=== PATIENT | female | born 1960 | race Native Hawaiian/Other Pacific Islander ===

== ENCOUNTER 2017-05-12 21:46 | Emergency (ER) | payer BC ==
--- NOTE | 2017-05-13 03:36 | Emergency Department Report ---
Minor Respiratory - HPI Chief Complaint: Upper Respiratory Infection Stated Complaint: SWOLLEN LYMPHNODES Time Seen by Provider: 05/13/17 02:11 Duration: 2 Days Pain Location: Throat, Other (swelling to right lymph nodes) Severity: moderate Minor Respiratory: Yes Rhinorrhea (nasal congestion), Yes Sore Throat, Yes Able to Tolerate Fluids, Yes Cough, No Ear Pain, No Sick Contacts, No Hemoptysis, No Chest Pain, No Shortness of Breath, No Fever Other History: She reports that she's been having in cold symptoms with nasal congestion and sinus problems over a month ago she started having sore throat and swollen lymph nodes on the right side of her neck for the past couple days. Denies any nausea or vomiting. Denies any shortness of breath or chest pain. Denies any neck pain or stiffness. Reports nasal congestion and runny nose. [id number] cough and cold is not helping. ED Review of Systems ROS: Stated complaint: SWOLLEN LYMPHNODES Other details as noted in HPI Comment: All other systems reviewed and negative Constitutional: no symptoms reported ENT: throat pain, congestion. denies: ear pain, dental pain Respiratory: cough. denies: orthopnea, shortness of breath, SOB with exertion, SOB at rest, stridor, wheezing Cardiovascular: denies: chest pain, palpitations, dyspnea on exertion, orthopnea , edema, syncope, paroxysmal nocturnal dyspnea Gastrointestinal: denies: nausea, vomiting Musculoskeletal: denies: back pain, joint swelling, arthralgia, myalgia Skin: denies: rash Neurological: denies: headache Hematological/Lymphatic: swollen glands ED Past Medical Hx - Past Medical History Previous Medical History?: Yes Hx Hypertension: Yes Additional medical history: anemia - Surgical History Past Surgical History?: No - Family History Family history: hypertension - Social History Smoking Status: Never Smoker Substance Use Type: None - Medications Home Medications: Home Medications Medication Instructions Recorded Confirmed Last Taken Type Lisinopril [Zestril] 40 mg PO DAILY 12/28/13 12/28/13 12/28/13 History Butalb/Acetamin/Caff 50-325-40 2 tab PO Q8HR PRN #14 tablet 02/28/16 Unknown Rx [Fioricet] Meclizine [Antivert] 25 mg PO TID PRN #20 tablet 02/28/16 Unknown Rx Aspirin EC [Aspirin Enteric Coated 81 mg PO QDAY #30 tablet. 05/25/16 Unknown Rx TAB] AtorvaSTATin [Lipitor] 20 mg PO QDAY #30 tablet 05/25/16 Unknown Rx Hydrochlorothiazide [HCTZ] 50 mg PO QDAY #30 tablet 05/25/16 Unknown Rx amLODIPine [Norvasc] 5 mg PO DAILY #30 tab 05/25/16 Unknown Rx Azithromycin [Zithromax] 250 mg PO QDAY 5 Days #1 pack 05/13/17 Unknown Rx Cetirizine HCl [ZyrTEC] 10 mg PO QAM 14 Days #14 capsule 05/13/17 Unknown Rx Fluticasone [Flonase] 1 spray NS QDAY 14 Days #1 bottle 05/13/17 Unknown Rx Ibuprofen [Motrin] 600 mg PO Q8H PRN 3 Days #9 tablet 05/13/17 Unknown Rx Minor Respiratory Exam - Exam General: Vital signs noted. No distress. Alert and acting appropriately. This is a 56-year-old female well-nourished well-developed in no acute distress HEENT: Yes Moist Mucous Membranes (tongue normal), Yes Rhinorrhea (positive nasal congestion), No Pharyngeal Erythema (uvula is midline, no trismus), No Pharyngeal Exudates (no peritonsillar abscess), No Conjuctival Injection, No Frontal Tenderness, No Maxillary Tenderness Ear: Neither TM Bulge (Bunny TM congested without erythema), Neither TM Erythema, Neither EAC Pain, Neither EAC Discharge Neck: Yes Supple (Full ROM. No C-spine tenderness), No Adenopathy Lungs: Yes Good Air Exchange (CTAB), Yes Other Abnormal Lung Sounds, No Wheezes , No Ronchi, No Stridor, No Cough, No Labored Respirations, No Retractions, No Use of Accessory Muscles Heart: Yes Regular (S1S2), No Murmur Abdomen: Yes Normal Bowel Sounds, No Tenderness, No Peritoneal Signs Skin: No Rash, No Edema Neurologic: Alert and oriented 3 , GCS of 15, speech is clear and fluid. No facial drooping. No motor or sensory deficit Musculoskeletal: Unremarkable. Clubbing, cyanosis or edema. No neurovascular compromise to all extremities ED Course Vital Signs 05/12/17 21:56 Temperature 98.5 F Pulse Rate 76 Respiratory 18 Rate Blood Pressure 128/79 O2 Sat by Pulse 100 Oximetry - Reevaluation(s) Reevaluation #1: 05/13/17 03:40 stable throughout ED course. ED Medical Decision Making - Medical Decision Making ED course: He reports that she's been having sinus and cold and cough symptoms for over a month but now with sore throat with right neck lymph node swollen. Physical findings for sinusitis that has been ongoing for over a month. Patient has no abnormality to oral mucosa. Her lung sounds are clear and she's been having any acute distress. I discussed with her that she has a sinus infection and will be treated with antibiotic, Zyrtec and Flonase and Motrin from ED in stable condition and she'll need to follow up with her primary care physician in 2-3 days. Patient discharged home Critical care attestation.: If time is entered above; I have spent that time in minutes in the direct care of this critically ill patient, excluding procedure time. ED Disposition Clinical Impression: Sinusitis nasal Qualifiers: Sinusitis location: unspecified location Chronicity: unspecified Qualified Code (s): J32.9 - Chronic sinusitis, unspecified Pharyngitis Qualifiers: Pharyngitis/tonsillitis etiology: unspecified etiology Qualified Code(s): J02.9 - Acute pharyngitis, unspecified Disposition: DC- TO HOME OR SELFCARE Is pt being admited?: No Does the pt Need Aspirin: No Condition: Stable Instructions: Sinusitis (ED), Pharyngitis (ED) Additional Instructions: Please increase her fluid intake Flush nostrils with saline nasal spray take antibiotic as prescribed F/U with primary care physician in 2-3 days Prescriptions: Azithromycin [Zithromax] 250 mg PO QDAY 5 Days #1 pack Cetirizine HCl [ZyrTEC] 10 mg PO QAM 14 Days #14 capsule Fluticasone [Flonase] 1 spray NS QDAY 14 Days #1 bottle Ibuprofen [Motrin] 600 mg PO Q8H PRN 3 Days #9 tablet PRN Reason: Pain Referrals: PRIMARY CARE,MD [Primary Care Provider] - 2-3 Days Forms: Work/School Release Form(ED)
[2017-05-13 04:08] VITALS: BP 149/89
== END 2017-05-13 04:07 | disposition home or self-care (01) ==
LOC: ED 21:46
DX: J32.9 Chronic sinusitis, unspecified (principal); J02.9 Acute pharyngitis, unspecified; I10 Essential (primary) hypertension; D64.9 Anemia, unspecified; Z79.82 Long term (current) use of aspirin; Z88.0 Allergy status to penicillin
CPT/HCPCS: 99282

== ENCOUNTER 2018-07-23 04:22 | Emergency (ER) | payer BC ==
[2018-07-23 04:57] LABS: Hematocrit 38.5 % (30.3-42.9); Hemoglobin 12.8 gm/dl (10.1-14.3); Mean Corpuscular HGB Conc 33 % (30-34); Mean Corpuscular Volume 76 fl (79-97); Platelet Count 184 K/mm3 (140-440); Red Blood Count 5.08 M/mm3 (3.65-5.03); Red Cell Distribution Width 14.6 % (13.2-15.2)
[2018-07-23 05:11] LABS: BUN/Creatinine Ratio 19; Blood Urea Nitrogen 13 mg/dL (7-17); Hemolysis Index 10
[2018-07-23 05:38] LABS: RBC Morphology Normal; Total Cells Counted 100
--- NOTE | 2018-07-23 07:00 | Emergency Department Report ---
ED General Adult HPI - General Chief complaint: Dizziness Stated complaint: DIZZINESS,LOW BP Time Seen by Provider: 07/23/18 06:08 Source: patient Mode of arrival: Wheelchair Limitations: No Limitations - History of Present Illness Initial comments: This is a 57 year old female who has had recurrent episodes of hypotension. She has a history of hypertension and is treated with myocarditis/HCTZ. She states that she felt weak and dizzy and that her blood pressure was checked during her shift last night. It was found to be 70/40. She drank a glass of water which usually helps this situation. However her blood pressure only did rise to 80 systolic. She came to the emergency department. She was found to have a blood pressure 161/90. She was essentially asymptomatic at time of my encounter. For some reason a CT of her head was ordered. She does not complain to me of headache nor head injury nor a syncopal episode. I think this is a foregoable exposure to radiation personally. In any case patient has refused this test ordered by my predecessor. She has no complaint referral both to the neurological system at the time of my encounter. -: Gradual Associated Symptoms: weakness Treatments Prior to Arrival: none - Related Data Home Medications Medication Instructions Recorded Confirmed Last Taken Lisinopril [Zestril] 40 mg PO DAILY 12/28/13 12/28/13 12/28/13 Previous Rx's Medication Instructions Recorded Last Taken Type Butalb/Acetamin/Caff 50-325-40 2 tab PO Q8HR PRN #14 tablet 02/28/16 Unknown Rx [Fioricet] Meclizine [Antivert] 25 mg PO TID PRN #20 tablet 02/28/16 Unknown Rx Aspirin EC [Aspirin Enteric Coated 81 mg PO QDAY #30 tablet. 05/25/16 Unknown Rx TAB] AtorvaSTATin [Lipitor] 20 mg PO QDAY #30 tablet 05/25/16 Unknown Rx amLODIPine [Norvasc] 5 mg PO DAILY #30 tab 05/25/16 Unknown Rx hydroCHLOROthiazide [HCTZ] 50 mg PO QDAY #30 tablet 05/25/16 Unknown Rx Azithromycin [Zithromax] 250 mg PO QDAY 5 Days #1 pack 05/13/17 Unknown Rx Cetirizine HCl [ZyrTEC] 10 mg PO QAM 14 Days #14 capsule 05/13/17 Unknown Rx Fluticasone [Flonase] 1 spray NS QDAY 14 Days #1 bottle 05/13/17 Unknown Rx Ibuprofen [Motrin] 600 mg PO Q8H PRN 3 Days #9 tablet 05/13/17 Unknown Rx Doxycycline Hyclate [Doxycycline 100 mg PO Q12HR #14 tab 05/15/18 Unknown Rx Hyclate TAB] Fluticasone [Flonase] 1 spray NS QDAY #1 bottle 05/15/18 Unknown Rx Telmisartan/Hctz (Nf) [Micardis 1 each PO QDAY #30 tablet 07/23/18 Unknown Rx Hct (Nf) 80-12.5 mg] Allergies Allergy/AdvReac Type Severity Reaction Status Date / Time Penicillins Allergy Swelling Verified 02/28/13 23:33 ED Review of Systems ROS: Stated complaint: DIZZINESS,LOW BP Other details as noted in HPI Constitutional: denies: chills, fever Eyes: denies: eye pain, eye discharge, vision change ENT: denies: ear pain, throat pain Respiratory: denies: cough, shortness of breath, wheezing Cardiovascular: denies: chest pain, palpitations Endocrine: no symptoms reported Gastrointestinal: denies: abdominal pain, nausea, diarrhea Genitourinary: denies: urgency, dysuria, discharge Musculoskeletal: denies: back pain, joint swelling, arthralgia Skin: denies: rash, lesions Neurological: denies: headache, weakness, paresthesias Psychiatric: denies: anxiety, depression Hematological/Lymphatic: denies: easy bleeding, easy bruising ED Past Medical Hx - Past Medical History Previous Medical History?: Yes Hx Hypertension: Yes Additional medical history: anemia - Surgical History Past Surgical History?: No - Social History Smoking Status: Never Smoker Substance Use Type: Prescribed - Medications Home Medications: Home Medications Medication Instructions Recorded Confirmed Last Taken Type Lisinopril [Zestril] 40 mg PO DAILY 12/28/13 12/28/13 12/28/13 History Butalb/Acetamin/Caff 50-325-40 2 tab PO Q8HR PRN #14 tablet 02/28/16 Unknown Rx [Fioricet] Meclizine [Antivert] 25 mg PO TID PRN #20 tablet 02/28/16 Unknown Rx Aspirin EC [Aspirin Enteric Coated 81 mg PO QDAY #30 tablet. 05/25/16 Unknown Rx TAB] AtorvaSTATin [Lipitor] 20 mg PO QDAY #30 tablet 05/25/16 Unknown Rx amLODIPine [Norvasc] 5 mg PO DAILY #30 tab 05/25/16 Unknown Rx hydroCHLOROthiazide [HCTZ] 50 mg PO QDAY #30 tablet 05/25/16 Unknown Rx Azithromycin [Zithromax] 250 mg PO QDAY 5 Days #1 pack 05/13/17 Unknown Rx Cetirizine HCl [ZyrTEC] 10 mg PO QAM 14 Days #14 capsule 05/13/17 Unknown Rx Fluticasone [Flonase] 1 spray NS QDAY 14 Days #1 bottle 05/13/17 Unknown Rx Ibuprofen [Motrin] 600 mg PO Q8H PRN 3 Days #9 tablet 05/13/17 Unknown Rx Doxycycline Hyclate [Doxycycline 100 mg PO Q12HR #14 tab 05/15/18 Unknown Rx Hyclate TAB] Fluticasone [Flonase] 1 spray NS QDAY #1 bottle 05/15/18 Unknown Rx Telmisartan/Hctz (Nf) [Micardis 1 each PO QDAY #30 tablet 07/23/18 Unknown Rx Hct (Nf) 80-12.5 mg] ED Physical Exam - General Limitations: No Limitations General appearance: alert, in no apparent distress - Head Head exam: Present: atraumatic, normocephalic - Eye Eye exam: Present: normal appearance - ENT ENT exam: Present: mucous membranes moist - Neck Neck exam: Present: normal inspection - Respiratory Respiratory exam: Present: normal lung sounds bilaterally. Absent: respiratory distress - Cardiovascular Cardiovascular Exam: Present: regular rate, normal rhythm. Absent: systolic murmur, diastolic murmur, rubs, gallop - GI/Abdominal GI/Abdominal exam: Present: soft, normal bowel sounds. Absent: distended, tend erness, guarding, rebound, rigid - Extremities Exam Extremities exam: Present: normal inspection - Back Exam Back exam: Present: normal inspection - Neurological Exam Neurological exam: Present: alert, oriented X3, CN II-XII intact, normal gait. Absent: motor sensory deficit - Psychiatric Psychiatric exam: Present: normal affect, normal mood - Skin Skin exam: Present: warm, dry, intact, normal color. Absent: rash ED Course Vital Signs 07/23/18 07/23/18 07/23/18 04:23 04:30 04:33 Temperature 98.2 F Blood Pressure 157/95 149/93 O2 Sat by Pulse 100 Oximetry 07/23/18 07/23/18 07/23/18 05:00 05:15 05:30 Temperature Blood Pressure 131/88 130/80 156/94 O2 Sat by Pulse Oximetry 07/23/18 05:45 Temperature Blood Pressure 144/90 O2 Sat by Pulse Oximetry ED Medical Decision Making - Lab Data Result diagrams: 07/23/18 04:45 07/23/18 04:45 Laboratory Results - last 24 hr 07/23/18 07/23/18 07/23/18 04:45 04:45 07:01 WBC 5.2 RBC 5.08 H Hgb 12.8 Hct 38.5 MCV 76 L MCH 25 L MCHC 33 RDW 14.6 Plt Count 184 Lymph % (Auto) Roll Contour Grinder Add Manual Diff Complete Total Counted 100 Seg Neutrophils % Roll Contour Grinder Seg Neuts % (Manual) 36.0 L Band Neutrophils % 0 Lymphocytes % (Manual) 52.0 H Reactive Lymphs % (Man) 0 Monocytes % (Manual) 2.0 Eosinophils % (Manual) 9.0 H Basophils % (Manual) 1.0 Metamyelocytes % 0 Myelocytes % 0 Promyelocytes % 0 Blast Cells % 0 Nucleated RBC % Not Reportable Seg Neutrophils # Man 1.9 Band Neutrophils # 0.0 Lymphocytes # (Manual) 2.7 Abs React Lymphs (Man) 0.0 Monocytes # (Manual) 0.1 Eosinophils # (Manual) 0.5 H Basophils # (Manual) 0.1 Metamyelocytes # 0.0 Myelocytes # 0.0 Promyelocytes # 0.0 Blast Cells # 0.0 WBC Morphology Not Reportable Hypersegmented Neuts Not Reportable Hyposegmented Neuts Not Reportable Hypogranular Neuts Not Reportable Smudge Cells Not Reportable Toxic Granulation Not Reportable Toxic Vacuolation Not Reportable Dohle Bodies Not Reportable Pelger-Huet Anomaly Not Reportable Juni Rods Not Reportable Platelet Estimate Appears normal Clumped Platelets Not Reportable Plt Clumps, EDTA Not Reportable Large Platelets Not Reportable Giant Platelets Not Reportable Platelet Satelliting Not Reportable Plt Morphology Comment Not Reportable RBC Morphology Normal Dimorphic RBCs Not Reportable Polychromasia Not Reportable Hypochromasia Not Reportable Poikilocytosis Not Reportable Anisocytosis Not Reportable Microcytosis Not Reportable Macrocytosis Not Reportable Spherocytes Not Reportable Pappenheimer Bodies Not Reportable Sickle Cells Not Reportable Target Cells Not Reportable Tear Drop Cells Not Reportable Ovalocytes Not Reportable Helmet Cells Not Reportable Leon-[place] Bodies Not Reportable Garner Rings Not Reportable Teresa Cells Not Reportable Bite Cells Not Reportable Crenated Cell Not Reportable Elliptocytes Not Reportable Acanthocytes (Spur) Not Reportable Rouleaux Not Reportable Hemoglobin C Crystals Not Reportable Schistocytes Not Reportable Malaria parasites Not Reportable Chava Bodies Not Reportable Hem Pathologist Commnt No Sodium 138 Potassium 3.2 L Chloride 97.3 L Carbon Dioxide 28 Anion Gap 16 BUN 13 Creatinine 0.7 Estimated GFR > 60 BUN/Creatinine Ratio 19 Glucose 108 H Calcium 9.0 Urine Bilirubin Neg Urine RBC (Auto) 1.0 U Epithel Cells (Auto) 5.0 Laboratory Results - last 24 hr 07/23/18 07/23/18 07/23/18 04:45 04:45 07:01 WBC 5.2 RBC 5.08 H Hgb 12.8 Hct 38.5 MCV 76 L MCH 25 L MCHC 33 RDW 14.6 Plt Count 184 Lymph % (Auto) Roll Contour Grinder Add Manual Diff Complete Total Counted 100 Seg Neutrophils % Roll Contour Grinder Seg Neuts % (Manual) 36.0 L Band Neutrophils % 0 Lymphocytes % (Manual) 52.0 H Reactive Lymphs % (Man) 0 Monocytes % (Manual) 2.0 Eosinophils % (Manual) 9.0 H Basophils % (Manual) 1.0 Metamyelocytes % 0 Myelocytes % 0 Promyelocytes % 0 Blast Cells % 0 Nucleated RBC % Not Reportable Seg Neutrophils # Man 1.9 Band Neutrophils # 0.0 Lymphocytes # (Manual) 2.7 Abs React Lymphs (Man) 0.0 Monocytes # (Manual) 0.1 Eosinophils # (Manual) 0.5 H Basophils # (Manual) 0.1 Metamyelocytes # 0.0 Myelocytes # 0.0 Promyelocytes # 0.0 Blast Cells # 0.0 WBC Morphology Not Reportable Hypersegmented Neuts Not Reportable Hyposegmented Neuts Not Reportable Hypogranular Neuts Not Reportable Smudge Cells Not Reportable Toxic Granulation Not Reportable Toxic Vacuolation Not Reportable Dohle Bodies Not Reportable Pelger-Huet Anomaly Not Reportable Juni Rods Not Reportable Platelet Estimate Appears normal Clumped Platelets Not Reportable Plt Clumps, EDTA Not Reportable Large Platelets Not Reportable Giant Platelets Not Reportable Platelet Satelliting Not Reportable Plt Morphology Comment Not Reportable RBC Morphology Normal Dimorphic RBCs Not Reportable Polychromasia Not Reportable Hypochromasia Not Reportable Poikilocytosis Not Reportable Anisocytosis Not Reportable Microcytosis Not Reportable Macrocytosis Not Reportable Spherocytes Not Reportable Pappenheimer Bodies Not Reportable Sickle Cells Not Reportable Target Cells Not Reportable Tear Drop Cells Not Reportable Ovalocytes Not Reportable Helmet Cells Not Reportable Leon-[place] Bodies Not Reportable Garner Rings Not Reportable [employer] Cells Not Reportable Bite Cells Not Reportable Crenated Cell Not Reportable Elliptocytes Not Reportable Acanthocytes (Spur) Not Reportable Rouleaux Not Reportable Hemoglobin C Crystals Not Reportable Schistocytes Not Reportable Malaria parasites Not Reportable Chava Bodies Not Reportable Hem Pathologist Commnt No Sodium 138 Potassium 3.2 L Chloride 97.3 L Carbon Dioxide 28 Anion Gap 16 BUN 13 Creatinine 0.7 Estimated GFR > 60 BUN/Creatinine Ratio 19 Glucose 108 H Calcium 9.0 Urine Bilirubin Neg Urine RBC (Auto) 1.0 U Epithel Cells (Auto) 5.0 Laboratory Results - last 24 hr 07/23/18 07/23/18 07/23/18 04:45 04:45 07:01 WBC 5.2 RBC 5.08 H Hgb 12.8 Hct 38.5 MCV 76 L MCH 25 L MCHC 33 RDW 14.6 Plt Count 184 Lymph % (Auto) Roll Contour Grinder Add Manual Diff Complete Total Counted 100 Seg Neutrophils % Roll Contour Grinder Seg Neuts % (Manual) 36.0 L Band Neutrophils % 0 Lymphocytes % (Manual) 52.0 H Reactive Lymphs % (Man) 0 Monocytes % (Manual) 2.0 Eosinophils % (Manual) 9.0 H Basophils % (Manual) 1.0 Metamyelocytes % 0 Myelocytes % 0 Promyelocytes % 0 Blast Cells % 0 Nucleated RBC % Not Reportable Seg Neutrophils # Man 1.9 Band Neutrophils # 0.0 Lymphocytes # (Manual) 2.7 Abs React Lymphs (Man) 0.0 Monocytes # (Manual) 0.1 Eosinophils # (Manual) 0.5 H Basophils # (Manual) 0.1 Metamyelocytes # 0.0 Myelocytes # 0.0 Promyelocytes # 0.0 Blast Cells # 0.0 WBC Morphology Not Reportable Hypersegmented Neuts Not Reportable Hyposegmented Neuts Not Reportable Hypogranular Neuts Not Reportable Smudge Cells Not Reportable Toxic Granulation Not Reportable Toxic Vacuolation Not Reportable Dohle Bodies Not Reportable Pelger-Huet Anomaly Not Reportable Juni Rods Not Reportable Platelet Estimate Appears normal Clumped Platelets Not Reportable Plt Clumps, EDTA Not Reportable Large Platelets Not Reportable Giant Platelets Not Reportable Platelet Satelliting Not Reportable Plt Morphology Comment Not Reportable RBC Morphology Normal Dimorphic RBCs Not Reportable Polychromasia Not Reportable Hypochromasia Not Reportable Poikilocytosis Not Reportable Anisocytosis Not Reportable Microcytosis Not Reportable Macrocytosis Not Reportable Spherocytes Not Reportable Pappenheimer Bodies Not Reportable Sickle Cells Not Reportable Target Cells Not Reportable Tear Drop Cells Not Reportable Ovalocytes Not Reportable Helmet Cells Not Reportable Leon-[place] Bodies Not Reportable Garner Rings Not Reportable Teresa Cells Not Reportable Bite Cells Not Reportable Crenated Cell Not Reportable Elliptocytes Not Reportable Acanthocytes (Spur) Not Reportable Rouleaux Not Reportable Hemoglobin C Crystals Not Reportable Schistocytes Not Reportable Malaria parasites Not Reportable Chava Bodies Not Reportable Hem Pathologist Commnt No Sodium 138 Potassium 3.2 L Chloride 97.3 L Carbon Dioxide 28 Anion Gap 16 BUN 13 Creatinine 0.7 Estimated GFR > 60 BUN/Creatinine Ratio 19 Glucose 108 H Calcium 9.0 Urine Bilirubin Neg Urine RBC (Auto) 1.0 U Epithel Cells (Auto) 5.0 Laboratory Results - last 24 hr 07/23/18 07/23/18 07/23/18 04:45 04:45 07:01 WBC 5.2 RBC 5.08 H Hgb 12.8 Hct 38.5 MCV 76 L MCH 25 L MCHC 33 RDW 14.6 Plt Count 184 Lymph % (Auto) Roll Contour Grinder Add Manual Diff Complete Total Counted 100 Seg Neutrophils % Roll Contour Grinder Seg Neuts % (Manual) 36.0 L Band Neutrophils % 0 Lymphocytes % (Manual) 52.0 H Reactive Lymphs % (Man) 0 Monocytes % (Manual) 2.0 Eosinophils % (Manual) 9.0 H Basophils % (Manual) 1.0 Metamyelocytes % 0 Myelocytes % 0 Promyelocytes % 0 Blast Cells % 0 Nucleated RBC % Not Reportable Seg Neutrophils # Man 1.9 Band Neutrophils # 0.0 Lymphocytes # (Manual) 2.7 Abs React Lymphs (Man) 0.0 Monocytes # (Manual) 0.1 Eosinophils # (Manual) 0.5 H Basophils # (Manual) 0.1 Metamyelocytes # 0.0 Myelocytes # 0.0 Promyelocytes # 0.0 Blast Cells # 0.0 WBC Morphology Not Reportable Hypersegmented Neuts Not Reportable Hyposegmented Neuts Not Reportable Hypogranular Neuts Not Reportable Smudge Cells Not Reportable Toxic Granulation Not Reportable Toxic Vacuolation Not Reportable Dohle Bodies Not Reportable Pelger-Huet Anomaly Not Reportable Juni Rods Not Reportable Platelet Estimate Appears normal Clumped Platelets Not Reportable Plt Clumps, EDTA Not Reportable Large Platelets Not Reportable Giant Platelets Not Reportable Platelet Satelliting Not Reportable Plt Morphology Comment Not Reportable RBC Morphology Normal Dimorphic RBCs Not Reportable Polychromasia Not Reportable Hypochromasia Not Reportable Poikilocytosis Not Reportable Anisocytosis Not Reportable Microcytosis Not Reportable Macrocytosis Not Reportable Spherocytes Not Reportable Pappenheimer Bodies Not Reportable Sickle Cells Not Reportable Target Cells Not Reportable Tear Drop Cells Not Reportable Ovalocytes Not Reportable Helmet Cells Not Reportable [place] Bodies Not Reportable Garner Rings Not Reportable [employer] Cells Not Reportable Bite Cells Not Reportable Crenated Cell Not Reportable Elliptocytes Not Reportable Acanthocytes (Spur) Not Reportable Rouleaux Not Reportable Hemoglobin C Crystals Not Reportable Schistocytes Not Reportable Malaria parasites Not Reportable Chava Bodies Not Reportable Hem Pathologist Commnt No Sodium 138 Potassium 3.2 L Chloride 97.3 L Carbon Dioxide 28 Anion Gap 16 BUN 13 Creatinine 0.7 Estimated GFR > 60 BUN/Creatinine Ratio 19 Glucose 108 H Calcium 9.0 Urine Color Yellow Urine Turbidity Clear Urine pH 6.0 Ur Specific [place] 1.018 Urine Protein <15 mg/dl Urine Glucose (UA) Neg Urine Ketones Neg Urine Blood Neg Urine Nitrite Neg Urine Bilirubin Neg Urine Urobilinogen < 2.0 Ur Leukocyte Esterase Tr Urine WBC (Auto) 5.0 Urine RBC (Auto) 1.0 U Epithel Cells (Auto) 5.0 Urine Mucus Few - EKG Data -: EKG Interpreted by Me EKG shows normal: sinus rhythm, axis, intervals, QRS complexes, ST-T waves Rate: normal - EKG Data Interpretation: other (normal sinus rhythm no evidence of acute ischemia. There is a QS and the 2 of uncertain significance) Critical care attestation.: If time is entered above; I have spent that time in minutes in the direct care of this critically ill patient, excluding procedure time. ED Disposition Clinical Impression: Essential hypertension, Hypotensive episode, Hypokalemia Disposition: TO HOME OR SELFCARE Is pt being admited?: No Does the pt Need Aspirin: No Condition: Stable Instructions: Hypertension (ED), Hypokalemia (ED), Hypotension (ED) Additional Instructions: Was reduced her dose of myocarditis HCTZ. Follow up with your primary care doctor and checked your blood pressure frequently. Be careful to avoid abrupt change of position/get up slowly. Stay well hydrated. Return any acute change or problems Prescriptions: Telmisartan/Hctz (Nf) [Micardis Hct (Nf) 80-12.5 mg] 1 each PO QDAY #30 tablet Referrals: WILLI LICONA MD [Primary Care Provider] - 3-5 Days Time of Disposition: 07:39
[2018-07-23 07:30] LABS: Bilirubin,Urine NEG (Negative); Blood,Urine NEG (Negative); Color,Urine Yellow (Yellow); Mucus,Urine FEW /HPF; Protein,Urine <15 mg/dL mg/dL (Negative); Urobilinogen,Urine < 2.0 mg/dL (<2.0)
[2018-07-23] MEDS ORDERED: K-DUR PO ONE (07:35)
[2018-07-23 08:18] VITALS: BP 140/87
== END 2018-07-23 08:16 | disposition home or self-care (01) ==
LOC: ED 04:22
DX: I10 Essential (primary) hypertension (principal); I95.9 Hypotension, unspecified; E87.6 Hypokalemia; Z88.0 Allergy status to penicillin; Z86.2 Personal history of diseases of the blood and blood-forming organs and certain disorders involving the immune mechanism; Z79.899 Other long term (current) drug therapy
CPT/HCPCS: 36415; 80048; 81001; 85007; 85025; 93005; 93010; 99283